=== PATIENT | male | born 1955 | race Two or more races ===

== ENCOUNTER → 2016-10-24 | Outpatient (CLI) | payer OTHER | END | disposition home or self-care (01) | LOC: WOUND 15:16 | PROVIDERS: ATTEND Podiatrist Foot & Ankle Surgery | DX: I87.2 Venous insufficiency (chronic) (peripheral) (principal); L97.822 Non-pressure chronic ulcer of other part of left lower leg with fat layer exposed; E78.5 Hyperlipidemia, unspecified; F17.210 Nicotine dependence, cigarettes, uncomplicated; Z72.89 Other problems related to lifestyle | CPT/HCPCS: 97597; G0463; WOU0463 ==

== ENCOUNTER → 2016-11-07 | Outpatient (CLI) | payer OTHER | END | disposition home or self-care (01) | LOC: WOUND 10:45 | PROVIDERS: ATTEND Podiatrist Foot & Ankle Surgery | DX: I87.2 Venous insufficiency (chronic) (peripheral) (principal); L97.822 Non-pressure chronic ulcer of other part of left lower leg with fat layer exposed; E78.5 Hyperlipidemia, unspecified; F17.210 Nicotine dependence, cigarettes, uncomplicated; Z72.89 Other problems related to lifestyle | CPT/HCPCS: 97597 ==

== ENCOUNTER → 2016-11-20 | Outpatient (CLI) | payer OTHER | END | disposition home or self-care (01) | LOC: CFH 09:42 | PROVIDERS: ATTEND Podiatrist Foot & Ankle Surgery | DX: S91.002D Unspecified open wound, left ankle, subsequent encounter (principal); L97.821 Non-pressure chronic ulcer of other part of left lower leg limited to breakdown of skin; E78.5 Hyperlipidemia, unspecified; M79.89 Other specified soft tissue disorders; I87.2 Venous insufficiency (chronic) (peripheral); Z87.891 Personal history of nicotine dependence; X58.XXXD Exposure to other specified factors, subsequent encounter | CPT/HCPCS: 93922; 93925; 93970 ==

== ENCOUNTER → 2016-11-21 | Outpatient (CLI) | payer OTHER | END | disposition home or self-care (01) | LOC: WOUND 10:10 | PROVIDERS: ATTEND Podiatrist Foot & Ankle Surgery | DX: I87.2 Venous insufficiency (chronic) (peripheral) (principal); L97.822 Non-pressure chronic ulcer of other part of left lower leg with fat layer exposed; E78.5 Hyperlipidemia, unspecified; F17.210 Nicotine dependence, cigarettes, uncomplicated; Z72.89 Other problems related to lifestyle | CPT/HCPCS: 97597 ==

== ENCOUNTER → 2016-12-05 | Outpatient (CLI) | payer OTHER | END | disposition home or self-care (01) | LOC: WOUND 10:30 | PROVIDERS: ATTEND Podiatrist Foot & Ankle Surgery | DX: I87.2 Venous insufficiency (chronic) (peripheral) (principal); L97.822 Non-pressure chronic ulcer of other part of left lower leg with fat layer exposed; E78.5 Hyperlipidemia, unspecified; F17.210 Nicotine dependence, cigarettes, uncomplicated; Z72.89 Other problems related to lifestyle | CPT/HCPCS: G0463; WOU0463 ==

== ENCOUNTER → 2017-01-16 | Outpatient (CLI) | payer OTHER | END | disposition home or self-care (01) | LOC: WOUND 09:00 | PROVIDERS: ATTEND Podiatrist Foot & Ankle Surgery | DX: I87.2 Venous insufficiency (chronic) (peripheral) (principal); L97.822 Non-pressure chronic ulcer of other part of left lower leg with fat layer exposed; E78.5 Hyperlipidemia, unspecified; F17.210 Nicotine dependence, cigarettes, uncomplicated; Z72.89 Other problems related to lifestyle | CPT/HCPCS: 97597 ==

== ENCOUNTER → 2018-03-23 | Outpatient (CLI) | payer OTHER | END | disposition home or self-care (01) | LOC: CVU 10:55 | PROVIDERS: ATTEND Internal Medicine Cardiovascular Disease | DX: I65.23 Occlusion and stenosis of bilateral carotid arteries (principal); I35.0 Nonrheumatic aortic (valve) stenosis; E78.5 Hyperlipidemia, unspecified | CPT/HCPCS: 93880 ==

== ENCOUNTER → 2018-05-11 | Outpatient (CLI) | payer OTHER ==
[~2018-05-11] MED LIST: ASPI-496 PO; CHRO1TAB4 PO; FLUT9.9S NAS; MAGNESIUM ZINC PO; METF500T27 PO; MULT1TAB57 PO; OMEP40CA6 PO; OMNIPAQUE 350 MG/ML, 100ML BOTTLE ONE; SIMV40TA3 PO; TRIA1KT.2 TP; UBID100C41 PO
== END | disposition home or self-care (01) ==
LOC: RAD 09:19
PROVIDERS: ATTEND Thoracic Surgery (Cardiothoracic Vascular Surgery)
DX: Z01.810 Encounter for preprocedural cardiovascular examination (principal); I77.810 Thoracic aortic ectasia
CPT/HCPCS: 36415; 71275; 82565; Q9967

== ENCOUNTER 2018-05-14 11:30 | Inpatient (IN) | payer OTHER ==
[~2018-05-14] VITALS: Ht 175.3 cm; Wt 103.8 kg
[2018-05-14 10:47] LABS: MICROSCOPIC NOT IND
[2018-05-14 11:08] LABS: INTERNATIONAL NORMALIZED RATIO 1.14 (0.93-1.1)
[2018-05-14 11:15] LABS: ALBUMIN 3.9 g/dL (3.4-5.0); ANION GAP 6 mmol/L (5-15); CALCIUM 8.7 mg/dL (8.5-10.1); CHLORIDE 106 mmol/L (98-107); MEAN CORPUSCULAR HEMOGLOBIN 21.6 pg (27.5-34.5); MEAN CORPUSCULAR HGB CONC 31.1 g/dL (33.2-36.2); MEAN CORPUSCULAR VOLUME 69.5 fL (81-97); MEAN PLATELET VOLUME 9.1 fL (7.4-10.4); PLATELET COUNT 274 x10^3/uL (130-400); RED BLOOD COUNT 6.01 x10^6/uL (4.38-5.82); RED CELL DISTRIBUTION WIDTH 27.8 % (9.4-14.8)
[2018-05-14 11:17] LABS: BASOPHILS # (AUTO) 0.04 x10^3/uL (0-0.1); BASOPHILS % (AUTO) 1 % (0-1); EOSINOPHILS # (AUTO) 0.24 x10^3/uL (0-0.4); EOSINOPHILS % (AUTO) 4 % (1-7); LYMPHOCYTES # (AUTO) 1.66 x10^3/uL (1-3.4); LYMPHOCYTES % (AUTO) 30 % (22-44); MD MORPH REVIEW ONLY; MONOCYTES # (AUTO) 0.64 x10^3/uL (0.2-0.8); MONOCYTES % (AUTO) 12 % (2-9); NEUTROPHILS # (AUTO) 2.97 x10^3/uL (1.8-6.8); NEUTROPHILS % (AUTO) 54 % (42-75)
[2018-05-14 11:18] LABS: ANISOCYTOSIS 2+; MICROCYTOSIS 2+; OVALOCYTES 1+
[2018-05-14 11:19] LABS: <PLATELET ESTIMATE> ADEQUATE; <PLT MORPHOLOGY> NORMAL PLT MORPH; ALANINE AMINOTRANSFERASE 37 U/L (12-78); ALKALINE PHOSPHATASE 71 U/L (45-117); BILIRUBIN,TOTAL 0.5 mg/dL (0.2-1.0); TOTAL PROTEIN 7.7 g/dL (6.4-8.2)
[~2018-05-14 11:30] MED LIST changes: -OMNIPAQUE 350 MG/ML, 100ML BOTTLE ONE
[2018-05-14 16:14] LABS: HEMOGLOBIN A1C 5.8 % (4.2-6.3)
[2018-05-15] MEDS ORDERED: INSULIN LISPRO 100 UNITS/ML, PEN SQ-INSULIN SCH (05:00)
[2018-05-15] MEDS ORDERED: DO NOT GIVE MC SCH (05:00)
[2018-05-15] MEDS ORDERED: CHLORHEXIDINE 15 ML UDC MM SCH (05:00)
[2018-05-15 05:42] VITALS: BP 114/77
[2018-05-15 05:43] VITALS: BP 114/74
[2018-05-15] MEDS ORDERED: FENTANYL PF 250 MCG/5ML ONE ×4 (06:46)
[2018-05-15] MEDS ORDERED: MIDAZOLAM 10MG/2 ML ONE (06:46)
[2018-05-15] MEDS ORDERED: AMINOCAPROIC ACID 250 MG/ML, 20ML ONE ×2 (06:53)
[2018-05-15] MEDS ORDERED: CALCIUM CHLORIDE 10%, 10ML SYR ONE (06:53)
[2018-05-15] MEDS ORDERED: ROCURONIUM 10MG/ML,5ML ONE (06:53)
[2018-05-15] MEDS ORDERED: PROPOFOL 10 MG/ML, 20ML ONE (07:13)
[2018-05-15] MEDS ORDERED: MILRINONE 1 MG/ML, 20ML ONE (07:13)
[2018-05-15] MEDS ORDERED: ALBUMIN HUMAN 5% 500 ML IV PRN (07:30)
[2018-05-15] MEDS ORDERED: REGULAR INSULIN 62.5 UNITS in SODIUM CHLORIDE 0.9% 249.375 ML IV PRN ×2 (07:30→10:18)
[2018-05-15] MEDS ORDERED: POTASSIUM CHLORIDE 80 MEQ, SODIUM BICARBONATE 8.4% 10 MEQ, MAGNESIUM SULFATE 0.5 GM, LI... IV PRN (07:30)
[2018-05-15] MEDS ORDERED: DEXMEDETOMIDINE 200 MCG in SODIUM CHLORIDE 0.9% 48 ML IV SCH (07:30)
[2018-05-15] MEDS ORDERED: VANCOMYCIN 1,400 MG in SODIUM CHLORIDE 0.9% 250 ML IV PRN (07:30)
[2018-05-15] MEDS ORDERED: EPINEPHRINE 2 MG in SODIUM CHLORIDE 0.9% 248 ML IV SCH (07:30)
[2018-05-15] MEDS ORDERED: MANNITOL PMX 20% 500 ML IVPB PRN (07:30)
[2018-05-15] MEDS ORDERED: PHENYLEPHRINE 10 MG in SODIUM CHLORIDE 0.9% 249 ML IV PRN ×2 (07:30→10:18)
[2018-05-15] MEDS ORDERED: MUPIROCIN OINT 2%, 22GM TP SCH (09:00)
[2018-05-15] MEDS: DOCUSATE 100 MG CAPSULE PO SCH ×2 (09:00→22:31)
[2018-05-15] MEDS ORDERED: SODIUM CHLORIDE FLUSH 10ML SYR IVF SCH (09:00)
[2018-05-15] MEDS ORDERED: NITROGLYCERIN/D5W PMX 250 ML IV PRN (10:18)
[2018-05-15] MEDS ORDERED: DOBUTAMINE 250 MG in SODIUM CHLORIDE 0.9% 230 ML IV PRN (10:18)
[2018-05-15] MEDS ORDERED: VASOPRESSIN 50 UNIT in SODIUM CHLORIDE 0.9% 247.5 ML IV PRN (10:18)
[2018-05-15] MEDS ORDERED: SODIUM BICARB 8.4%, 50ML SYRINGE IV PRN (10:30)
[2018-05-15] MEDS ORDERED: BISACODYL 10 MG SUPP PR PRN (10:30)
[2018-05-15] MEDS ORDERED: LACTATED RINGERS 500 ML IV PRN (10:30)
[2018-05-15] MEDS ORDERED: INSULIN REGULAR 100 UNITS/ML, 3ML VIAL IVPush PRN (10:30)
[2018-05-15] MEDS ORDERED: EPINEPHRINE 2 MG in SODIUM CHLORIDE 0.9% 248 ML IV PRN (10:30)
[2018-05-15] MEDS ORDERED: FENTANYL PF 100 MCG/2ML IVPush PRN (10:30)
[2018-05-15] MEDS ORDERED: BISACODYL 5 MG EC TABLET PO PRN (10:30)
[2018-05-15] MEDS ORDERED: HYDROcodone/APAP 5/325 TABLET PO PRN (10:30)
[2018-05-15] MEDS ORDERED: ONDANSETRON 2MG/ML, 2ML IVPush PRN (10:30)
[2018-05-15] MEDS ORDERED: DEXTROSE 4 GM TAB.CHEW PO PRN (10:30)
[2018-05-15] MEDS ORDERED: GLUCAGON 1 MG IM PRN (10:30)
[2018-05-15] MEDS: KSCALE TO 4.5 IV SCH ×3 (10:30→22:30)
[2018-05-15] MEDS ORDERED: ACETAMINOPHEN 650 MG SUPP PR PRN (10:30)
[2018-05-15] MEDS ORDERED: DEXTROSE 50%, 50ML SYRINGE IVPush PRN (10:30)
[2018-05-15] MEDS ORDERED: PROCHLORPERAZINE 5 MG/ML, 2ML IVPush PRN (10:30)
[2018-05-15] MEDS ORDERED: LIDOCAINE 2% 100MG/5ML SYRINGE ONE (10:40)
[2018-05-15] MEDS ORDERED: SODIUM BICARB 8.4%, 50ML SYRINGE ONE (10:40)
[2018-05-15] MEDS ORDERED: SODIUM BICARBONATE 1 MEQ/ML, 50ML VIAL ONE (10:40)
[2018-05-15] MEDS ORDERED: HEPARIN 1,000 UNITS/ML, 30ML ONE ×2 (10:41→10:42)
[2018-05-15] MEDS ORDERED: ALBUMIN HUMAN 25% 50 ML ONE (10:41)
[2018-05-15] MEDS ORDERED: PHENYLEPHRINE 10 MG/ML ONE (10:41)
[2018-05-15 10:58] LABS: GLUCOSE BY BLOOD GAS ANALYZER 172 mg/dL (70-110); HEMOGLOBIN BY BLOOD GAS ANALYZ 11.2 g/dL (14.0-18.0); POTASSIUM BY BLOOD GAS ANALYZR 3.9 mmol/L (3.6-5.5)
[2018-05-15] MEDS: INSULIN LISPRO 100 UNITS/ML, PEN SQ-INSULIN SCH ×3 (11:00→21:00)
[2018-05-15] MEDS ORDERED: SODIUM CHLORIDE 0.9% 1,000 ML IV PRN (11:00)
[2018-05-15] MEDS: MAGNESIUM SULFATE 1 GM in SODIUM CHLORIDE 0.9% 50 ML IVPB SCH (11:05)
[2018-05-15 11:10] LABS: INTERNATIONAL NORMALIZED RATIO 1.43 (0.93-1.1)
[2018-05-15] MEDS: MORPHINE SULFATE 4 MG/ML, 1ML IVPush PRN ×2 (11:22→11:53)
[2018-05-15] MEDS ORDERED: POTASSIUM CHLORIDE PMX 100 ML IV ONE ×2 (11:30→23:30)
[2018-05-15] MEDS ORDERED: DEXMEDETOMIDINE 200 MCG in SODIUM CHLORIDE 0.9% 48 ML IV PRN (12:00)
[2018-05-15 13:05] VITALS: BP 89/52
[2018-05-15 13:18] VITALS: BP 89/52
[2018-05-15 13:27] VITALS: BP 93/54
[2018-05-15] MEDS ORDERED: SODIUM BICARB 8.4%, 50ML SYRINGE IVPush ONE (13:30)
[2018-05-15] MEDS: OXYcodone IR 5MG TABLET PO PRN (16:39)
[2018-05-15] MEDS: HYDROcodone/APAP 10/325 MG TABLET PO PRN ×2 (17:45→22:31)
[2018-05-15] MEDS: VANCOMYCIN 1,500 MG in SODIUM CHLORIDE 0.9% 250 ML IVPB SCH (21:49)
[2018-05-15] MEDS: MUPIROCIN OINT 2%, 22GM NAS SCH (22:31)
[2018-05-15] MEDS: ACETAMINOPHEN 325 MG TABLET PO PRN (22:31)
[2018-05-15] MEDS: SODIUM CHLORIDE FLUSH 10ML SYR IVF SCH (22:31)
[2018-05-16] MEDS: ACETAMINOPHEN 325 MG TABLET PO PRN (02:35)
[2018-05-16] MEDS: HYDROcodone/APAP 10/325 MG TABLET PO PRN ×2 (02:35→07:47)
[2018-05-16] MEDS: KSCALE TO 4.5 IV SCH (04:30)
[2018-05-16 05:09] LABS: INTERNATIONAL NORMALIZED RATIO 1.24 (0.93-1.1)
[2018-05-16 05:12] LABS: ALBUMIN 3.4 g/dL (3.4-5.0); ANION GAP 8 mmol/L (5-15); CALCIUM 7.5 mg/dL (8.5-10.1); CHLORIDE 105 mmol/L (98-107)
[2018-05-16 05:14] LABS: CREATININE 0.83 mg/dL (0.7-1.3)
[2018-05-16 05:19] LABS: MEAN CORPUSCULAR HEMOGLOBIN 22.1 pg (27.5-34.5); MEAN CORPUSCULAR HGB CONC 31.8 g/dL (33.2-36.2); MEAN CORPUSCULAR VOLUME 69.5 fL (81-97); MEAN PLATELET VOLUME 9.1 fL (7.4-10.4); PLATELET COUNT 178 x10^3/uL (130-400); RED BLOOD COUNT 4.58 x10^6/uL (4.38-5.82); RED CELL DISTRIBUTION WIDTH 27.3 % (9.4-14.8)
[2018-05-16 05:46] LABS: ANISOCYTOSIS 2+; BASOPHILS # (AUTO) 0.02 x10^3/uL (0-0.1); BASOPHILS % (AUTO) 0 % (0-1); EOSINOPHILS % (AUTO) 0 % (1-7); LYMPHOCYTES # (AUTO) 1.12 x10^3/uL (1-3.4); LYMPHOCYTES % (AUTO) 9 % (22-44); MD MORPH REVIEW ONLY; MICROCYTOSIS 2+; MONOCYTES # (AUTO) 1.34 x10^3/uL (0.2-0.8); MONOCYTES % (AUTO) 10 % (2-9); NEUTROPHILS # (AUTO) 10.53 x10^3/uL (1.8-6.8); NEUTROPHILS % (AUTO) 81 % (42-75); OVALOCYTES 1+
[2018-05-16 05:47] LABS: <PLATELET ESTIMATE> ADEQUATE; <PLT MORPHOLOGY> NORMAL PLT MORPH; POLYCHROMASIA 1+
[2018-05-16] MEDS: INSULIN LISPRO 100 UNITS/ML, PEN SQ-INSULIN SCH ×4 (06:01→20:30)
[2018-05-16] MEDS ORDERED: POTASSIUM CHLORIDE PMX 100 ML IV ONE (06:30)
[2018-05-16] MEDS: VANCOMYCIN 1,500 MG in SODIUM CHLORIDE 0.9% 250 ML IVPB SCH (07:46)
[2018-05-16] MEDS: SODIUM CHLORIDE FLUSH 10ML SYR IVF SCH ×2 (08:04→21:05)
[2018-05-16] MEDS ORDERED: FUROSEMIDE 40 MG/4 ML IV ONE (08:30)
[2018-05-16] MEDS: DOCUSATE 100 MG CAPSULE PO SCH ×2 (09:36→21:04)
[2018-05-16] MEDS: OXYcodone IR 5MG TABLET PO PRN ×4 (09:36→20:08)
[2018-05-16] MEDS: ASPIRIN 81 MG TABLET EC PO SCH (09:36)
[2018-05-16] MEDS: MUPIROCIN OINT 2%, 22GM NAS SCH ×2 (09:37→21:05)
[2018-05-16] MEDS ORDERED: REGULAR INSULIN 62.5 UNITS in SODIUM CHLORIDE 0.9% 249.375 ML IV PRN (10:18)
[2018-05-16] MEDS: WARFARIN BIOPROSTHETIC VALVE PROTOCOL 2-3 XX SCH (10:46)
[2018-05-16] MEDS: MAGNESIUM SULFATE 1 GM in SODIUM CHLORIDE 0.9% 50 ML IVPB SCH (12:20)
[2018-05-16] MEDS: WARFARIN MODERAT DOSE PROTOCOL XX SCH (12:28)
[2018-05-16] MEDS ORDERED: LISINOPRIL 5 MG TABLET ONE (13:32)
[2018-05-16] MEDS: LISINOPRIL 5 MG TABLET PO SCH ×2 (13:34→21:04)
[2018-05-16] MEDS ORDERED: WARFARIN 7.5 MG TABLET PO-COUM SCH (18:00)
[2018-05-16] MEDS: CHLORHEXIDINE 15 ML UDC MM SCH (21:04)
[2018-05-16] MEDS ORDERED: ALBUMIN HUMAN 5% 500 ML IV ONE (22:30)
[2018-05-17] MEDS: OXYcodone IR 5MG TABLET PO PRN ×5 (00:05→16:16)
[2018-05-17] MEDS: INSULIN LISPRO 100 UNITS/ML, PEN SQ-INSULIN SCH ×6 (00:15→19:59)
[2018-05-17 04:50] LABS: MEAN CORPUSCULAR HGB CONC 31.5 g/dL (33.2-36.2); MEAN CORPUSCULAR VOLUME 69.9 fL (81-97); PLATELET COUNT 144 x10^3/uL (130-400); RED BLOOD COUNT 4.07 x10^6/uL (4.38-5.82); RED CELL DISTRIBUTION WIDTH 27.6 % (9.4-14.8)
[2018-05-17 04:56] LABS: INTERNATIONAL NORMALIZED RATIO 1.28 (0.93-1.1); PROTHROMBIN TIME 13.4 Seconds (9.6-11.5)
[2018-05-17 04:57] LABS: ANION GAP 8 mmol/L (5-15); CALCIUM 8.2 mg/dL (8.5-10.1); CHLORIDE 99 mmol/L (98-107); CREATININE 1.12 mg/dL (0.7-1.3)
[2018-05-17 05:40] LABS: BASOPHILS # (AUTO) 0.03 x10^3/uL (0-0.1); BASOPHILS % (AUTO) 0 % (0-1); EOSINOPHILS # (AUTO) 0.01 x10^3/uL (0-0.4); EOSINOPHILS % (AUTO) 0 % (1-7); LYMPHOCYTES # (AUTO) 1.26 x10^3/uL (1-3.4); LYMPHOCYTES % (AUTO) 9 % (22-44); MD SCAN; MONOCYTES # (AUTO) 1.15 x10^3/uL (0.2-0.8); MONOCYTES % (AUTO) 9 % (2-9); NEUTROPHILS # (AUTO) 11.01 x10^3/uL (1.8-6.8); NEUTROPHILS % (AUTO) 82 % (42-75)
[2018-05-17] MEDS: WARFARIN BIOPROSTHETIC VALVE PROTOCOL 2-3 XX SCH (07:59)
[2018-05-17] MEDS ORDERED: FUROSEMIDE 20 MG/2 ML ONE (08:59)
[2018-05-17] MEDS: ASPIRIN 81 MG TABLET EC PO SCH (09:00)
[2018-05-17] MEDS: LISINOPRIL 5 MG TABLET PO SCH ×2 (09:00→19:56)
[2018-05-17] MEDS: CHLORHEXIDINE 15 ML UDC MM SCH ×2 (09:00→19:56)
[2018-05-17] MEDS ORDERED: FUROSEMIDE 20 MG/2 ML IV ONE (09:00)
[2018-05-17] MEDS: DOCUSATE 100 MG CAPSULE PO SCH ×2 (09:01→19:56)
[2018-05-17] MEDS: MUPIROCIN OINT 2%, 22GM NAS SCH ×2 (09:01→21:47)
[2018-05-17] MEDS: SODIUM CHLORIDE FLUSH 10ML SYR IVF SCH ×3 (09:03→21:47)
[2018-05-17] MEDS ORDERED: LACTATED RINGERS 500 ML IVBOLUS ONE (10:30)
[2018-05-17] MEDS ORDERED: MAGNESIUM HYDROXIDE 8%, 30ML UDC PO PRN (11:00)
[2018-05-17] MEDS: MAGNESIUM SULFATE 1 GM in SODIUM CHLORIDE 0.9% 50 ML IVPB SCH (11:40)
[2018-05-17] MEDS: WARFARIN MODERAT DOSE PROTOCOL XX SCH (11:43)
[2018-05-17] MEDS: HYDROcodone/APAP 10/325 MG TABLET PO PRN ×2 (14:16→17:53)
[2018-05-17 16:11] VITALS: BP 126/79
[2018-05-17] MEDS: metFORMIN 500 MG TABLET PO SCH (16:16)
[2018-05-17] MEDS ORDERED: WARFARIN 7.5 MG TABLET PO-COUM SCH (18:00)
[2018-05-17 19:15] VITALS: BP 120/74
[2018-05-17 19:53] VITALS: BP 106/68
[2018-05-17] MEDS: SIMVASTATIN 40 MG TABLET PO SCH (19:57)
[2018-05-18 01:44] VITALS: BP 119/71
[2018-05-18 05:38] LABS: MEAN CORPUSCULAR HGB CONC 31.4 g/dL (33.2-36.2); MEAN CORPUSCULAR VOLUME 69.9 fL (81-97); MEAN PLATELET VOLUME 9.1 fL (7.4-10.4); PLATELET COUNT 139 x10^3/uL (130-400); RED BLOOD COUNT 3.85 x10^6/uL (4.38-5.82); RED CELL DISTRIBUTION WIDTH 27.1 % (9.4-14.8)
[2018-05-18 05:44] LABS: ANION GAP 6 mmol/L (5-15); CALCIUM 7.8 mg/dL (8.5-10.1); CHLORIDE 95 mmol/L (98-107); CREATININE 0.97 mg/dL (0.7-1.3)
[2018-05-18 06:03] LABS: BASOPHILS # (AUTO) 0.03 x10^3/uL (0-0.1); BASOPHILS % (AUTO) 0 % (0-1); EOSINOPHILS # (AUTO) 0.15 x10^3/uL (0-0.4); EOSINOPHILS % (AUTO) 2 % (1-7); LYMPHOCYTES # (AUTO) 0.95 x10^3/uL (1-3.4); LYMPHOCYTES % (AUTO) 10 % (22-44); MD SCAN; MONOCYTES % (AUTO) 7 % (2-9); NEUTROPHILS # (AUTO) 7.91 x10^3/uL (1.8-6.8); NEUTROPHILS % (AUTO) 81 % (42-75)
[2018-05-18 07:45] VITALS: BP 138/84
[2018-05-18] MEDS: INSULIN LISPRO 100 UNITS/ML, PEN SQ-INSULIN SCH ×4 (08:00→19:34)
[2018-05-18] MEDS: ASPIRIN 81 MG TABLET EC PO SCH (08:01)
[2018-05-18] MEDS: CHLORHEXIDINE 15 ML UDC MM SCH (08:01)
[2018-05-18] MEDS: HYDROcodone/APAP 10/325 MG TABLET PO PRN ×2 (08:01→16:49)
[2018-05-18] MEDS: DOCUSATE 100 MG CAPSULE PO SCH ×2 (08:01→19:34)
[2018-05-18] MEDS: LISINOPRIL 5 MG TABLET PO SCH ×2 (08:01→19:39)
[2018-05-18] MEDS: metFORMIN 500 MG TABLET PO SCH ×2 (08:01→16:49)
[2018-05-18] MEDS: MUPIROCIN OINT 2%, 22GM NAS SCH ×2 (08:01→19:33)
[2018-05-18] MEDS: KETOROLAC 30 MG/1 ML IM SCH ×3 (09:00→19:32)
[2018-05-18] MEDS: FUROSEMIDE 40 MG/4 ML IV SCH (10:24)
[2018-05-18] MEDS: GUAIFENESIN ER 600 MG TABLET PO SCH ×2 (10:25→19:33)
[2018-05-18] MEDS: SODIUM CHLORIDE FLUSH 10ML SYR IVF SCH ×4 (10:25→19:33)
[2018-05-18] MEDS: WARFARIN BIOPROSTHETIC VALVE PROTOCOL 2-3 XX SCH (10:25)
[2018-05-18] MEDS: POTASSIUM CHLORIDE 20 MEQ TAB.ER.PRT PO SCH (10:25)
[2018-05-18] MEDS: OXYcodone IR 5MG TABLET PO PRN ×2 (11:07→21:32)
[2018-05-18 11:10] LABS: INTERNATIONAL NORMALIZED RATIO 1.17 (0.93-1.1); PROTHROMBIN TIME 12.3 Seconds (9.6-11.5)
[2018-05-18] MEDS: WARFARIN MODERAT DOSE PROTOCOL XX SCH (12:00)
[2018-05-18 13:22] VITALS: BP 112/67
[2018-05-18] MEDS ORDERED: WARFARIN 10 MG TABLET PO-COUM ONE (18:00)
[2018-05-18 18:45] VITALS: BP 138/76
[2018-05-18] MEDS: SIMVASTATIN 40 MG TABLET PO SCH (19:34)
[2018-05-18 19:39] VITALS: BP 122/77
[2018-05-19 00:54] VITALS: BP 112/71
[2018-05-19] MEDS: HYDROcodone/APAP 10/325 MG TABLET PO PRN (01:02)
[2018-05-19] MEDS: KETOROLAC 30 MG/1 ML IM SCH ×5 (03:00→23:09)
[2018-05-19 05:43] LABS: MEAN CORPUSCULAR HEMOGLOBIN 22.8 pg (27.5-34.5); MEAN CORPUSCULAR HGB CONC 32.5 g/dL (33.2-36.2); MEAN CORPUSCULAR VOLUME 70.1 fL (81-97); MEAN PLATELET VOLUME 9.7 fL (7.4-10.4); PLATELET COUNT 194 x10^3/uL (130-400); RED BLOOD COUNT 4.01 x10^6/uL (4.38-5.82); RED CELL DISTRIBUTION WIDTH 27.2 % (9.4-14.8)
[2018-05-19 05:48] LABS: ANION GAP 6 mmol/L (5-15); CHLORIDE 97 mmol/L (98-107); CREATININE 0.78 mg/dL (0.7-1.3)
[2018-05-19 06:17] LABS: MD MORPH REVIEW ONLY
[2018-05-19 06:18] LABS: BASOPHILS # (AUTO) 0.04 x10^3/uL (0-0.1); BASOPHILS % (AUTO) 1 % (0-1); EOSINOPHILS # (AUTO) 0.28 x10^3/uL (0-0.4); EOSINOPHILS % (AUTO) 4 % (1-7); LYMPHOCYTES # (AUTO) 0.81 x10^3/uL (1-3.4); LYMPHOCYTES % (AUTO) 12 % (22-44); MONOCYTES # (AUTO) 0.78 x10^3/uL (0.2-0.8); MONOCYTES % (AUTO) 11 % (2-9); NEUTROPHILS # (AUTO) 5.15 x10^3/uL (1.8-6.8); NEUTROPHILS % (AUTO) 73 % (42-75)
[2018-05-19 06:19] LABS: ANISOCYTOSIS 2+; HYPOCHROMIA 1+; MICROCYTOSIS 2+
[2018-05-19 06:20] LABS: <PLATELET ESTIMATE> ADEQUATE; <PLT MORPHOLOGY> NORMAL PLT MORPH; OVALOCYTES 1+; POLYCHROMASIA 1+
[2018-05-19 07:27] VITALS: BP 117/76
[2018-05-19 08:02] LABS: INTERNATIONAL NORMALIZED RATIO 2.97 (0.93-1.1); PROTHROMBIN TIME 30.2 Seconds (9.6-11.5)
[2018-05-19] MEDS: GUAIFENESIN ER 600 MG TABLET PO SCH ×2 (08:37→20:29)
[2018-05-19] MEDS: metFORMIN 500 MG TABLET PO SCH ×2 (08:37→16:27)
[2018-05-19] MEDS: POTASSIUM CHLORIDE 20 MEQ TAB.ER.PRT PO SCH (08:37)
[2018-05-19] MEDS: FUROSEMIDE 40 MG/4 ML IV SCH (08:37)
[2018-05-19] MEDS: INSULIN LISPRO 100 UNITS/ML, PEN SQ-INSULIN SCH ×4 (08:37→20:29)
[2018-05-19] MEDS: LISINOPRIL 5 MG TABLET PO SCH ×2 (08:38→20:30)
[2018-05-19] MEDS: ASPIRIN 81 MG TABLET EC PO SCH (08:38)
[2018-05-19] MEDS: SODIUM CHLORIDE FLUSH 10ML SYR IVF SCH ×4 (08:38→21:00)
[2018-05-19] MEDS: DOCUSATE 100 MG CAPSULE PO SCH ×2 (08:38→20:29)
[2018-05-19] MEDS: MUPIROCIN OINT 2%, 22GM NAS SCH ×2 (08:41→20:29)
[2018-05-19] MEDS ORDERED: TEMPLATE NON-FORMULARY MED. (Metformin Hcl** (Metformin Hcl Er**) 500 MG) PO SCH (09:30)
[2018-05-19] MEDS: WARFARIN BIOPROSTHETIC VALVE PROTOCOL 2-3 XX SCH (09:54)
[2018-05-19] MEDS: OMEPRAZOLE 20 MG CAPSULE.DR PO SCH (11:41)
[2018-05-19 12:07] VITALS: BP 129/81
[2018-05-19] MEDS: WARFARIN MODERAT DOSE PROTOCOL XX SCH (13:22)
[2018-05-19] MEDS: METOPROLOL TARTRATE 25 MG TABLET PO SCH (16:27)
[2018-05-19 19:19] VITALS: BP 133/77
[2018-05-19] MEDS: SIMVASTATIN 40 MG TABLET PO SCH (20:30)
[2018-05-19] MEDS: ACETAMINOPHEN 325 MG TABLET PO PRN (20:30)
[2018-05-20 02:18] VITALS: BP 130/79
[2018-05-20 05:17] VITALS: BP 138/85
[2018-05-20] MEDS: METOPROLOL TARTRATE 25 MG TABLET PO SCH (05:18)
[2018-05-20 06:12] LABS: BASOPHILS # (AUTO) 0.03 x10^3/uL (0-0.1); BASOPHILS % (AUTO) 1 % (0-1); EOSINOPHILS # (AUTO) 0.22 x10^3/uL (0-0.4); EOSINOPHILS % (AUTO) 4 % (1-7); LYMPHOCYTES # (AUTO) 0.59 x10^3/uL (1-3.4); LYMPHOCYTES % (AUTO) 10 % (22-44); MD SCAN; MEAN CORPUSCULAR HEMOGLOBIN 22.7 pg (27.5-34.5); MEAN CORPUSCULAR HGB CONC 32.5 g/dL (33.2-36.2); MEAN CORPUSCULAR VOLUME 69.9 fL (81-97); MEAN PLATELET VOLUME 9.3 fL (7.4-10.4); MONOCYTES # (AUTO) 0.77 x10^3/uL (0.2-0.8); MONOCYTES % (AUTO) 13 % (2-9); NEUTROPHILS # (AUTO) 4.21 x10^3/uL (1.8-6.8); NEUTROPHILS % (AUTO) 72 % (42-75); PLATELET COUNT 257 x10^3/uL (130-400); RED BLOOD COUNT 4.03 x10^6/uL (4.38-5.82); RED CELL DISTRIBUTION WIDTH 27.6 % (9.4-14.8)
[2018-05-20 06:23] LABS: ANION GAP 6 mmol/L (5-15); CALCIUM 8.1 mg/dL (8.5-10.1); CHLORIDE 101 mmol/L (98-107)
[2018-05-20 06:26] LABS: CREATININE 0.72 mg/dL (0.7-1.3)
[2018-05-20] MEDS: INSULIN LISPRO 100 UNITS/ML, PEN SQ-INSULIN SCH ×2 (07:00→11:00)
[2018-05-20 07:34] VITALS: BP 138/80
[2018-05-20 07:59] LABS: INTERNATIONAL NORMALIZED RATIO 2.96 (0.93-1.1); PROTHROMBIN TIME 30.1 Seconds (9.6-11.5)
[2018-05-20] MEDS: SODIUM CHLORIDE FLUSH 10ML SYR IVF SCH ×2 (08:20)
[2018-05-20] MEDS: FUROSEMIDE 40 MG/4 ML IV SCH (08:20)
[2018-05-20] MEDS: GUAIFENESIN ER 600 MG TABLET PO SCH (08:30)
[2018-05-20] MEDS: LISINOPRIL 5 MG TABLET PO SCH (08:30)
[2018-05-20] MEDS: OMEPRAZOLE 20 MG CAPSULE.DR PO SCH (08:30)
[2018-05-20] MEDS: ACETAMINOPHEN 325 MG TABLET PO PRN (08:30)
[2018-05-20] MEDS: metFORMIN 500 MG TABLET PO SCH (08:31)
[2018-05-20] MEDS: ASPIRIN 81 MG TABLET EC PO SCH (08:31)
[2018-05-20] MEDS: POTASSIUM CHLORIDE 20 MEQ TAB.ER.PRT PO SCH (08:31)
[2018-05-20] MEDS: DOCUSATE 100 MG CAPSULE PO SCH (08:31)
[2018-05-20] MEDS: MUPIROCIN OINT 2%, 22GM NAS SCH (08:31)
[2018-05-20] MEDS ORDERED: HYDR-3307 PO (08:32)
[2018-05-20] MEDS ORDERED: METO25TA35 PO (08:32)
[2018-05-20] MEDS: KETOROLAC 30 MG/1 ML IM SCH (08:33)
[2018-05-20] MEDS ORDERED: WARF2.5T32 PO (12:04)
== END 2018-05-20 13:10 | disposition home or self-care (01) | DRG 219 ==
LOC: 5SO 05-15 04:22 → CSU 05-15 07:50 → 5SO 05-17 13:26 → DCLOUNGE 05-20 12:44
PROVIDERS: ADMIT Thoracic Surgery (Cardiothoracic Vascular Surgery); ATTEND Thoracic Surgery (Cardiothoracic Vascular Surgery)
PROC: 5A1221Z Performance of Cardiac Output, Continuous (ICD-10-PCS; 2018-05-15)
PROC: B246ZZ4 Ultrasonography of Right and Left Heart, Transesophageal (ICD-10-PCS; 2018-05-15)
PROC: 30233R1 Transfusion of Nonautologous Platelets into Peripheral Vein, Percutaneous Approach (ICD-10-PCS; 2018-05-15)
PROC: 02RF08Z Replacement of Aortic Valve with Zooplastic Tissue, Open Approach (ICD-10-PCS; principal; 2018-05-15 07:30)
DX: I35.0 Nonrheumatic aortic (valve) stenosis (principal); Z00.6 Encounter for examination for normal comparison and control in clinical research program; I50.33 Acute on chronic diastolic (congestive) heart failure; J81.1 Chronic pulmonary edema; E87.4 Mixed disorder of acid-base balance; R06.89 Other abnormalities of breathing; I71.4 Abdominal aortic aneurysm, without rupture; I25.10 Atherosclerotic heart disease of native coronary artery without angina pectoris; E78.5 Hyperlipidemia, unspecified; E11.9 Type 2 diabetes mellitus without complications; E87.6 Hypokalemia; I34.0 Nonrheumatic mitral (valve) insufficiency; I71.2 Thoracic aortic aneurysm, without rupture; K21.9 Gastro-esophageal reflux disease without esophagitis; Z86.79 Personal history of other diseases of the circulatory system; Z88.8 Allergy status to other drugs, medicaments and biological substances; Z87.891 Personal history of nicotine dependence; Z79.82 Long term (current) use of aspirin; Z79.899 Other long term (current) drug therapy
CPT/HCPCS: 36415; 36600; 71045; 71046; 80048; 80053; 81003; 82040; 82330; 82800; 82803; 82810; 82947; 82962; 83036; 83735; 84132; 84295; 85014; 85018; 85025; 85049; 85347; 85610; 85730; 86850; 86900; 86923; 87070; 87081; 87205; 88304; 88305; 88311; 93005; 93312; 93321; 93325; 94002; 94150; C1768; G0378; J1644; J1815; J1940; J2250; J2260; J2704; J3010; J3370; J3475; J3480; J3490; J7120; P9045; P9047; C1751; C1760; J0171; J2370; J7050; P9035

== ENCOUNTER 2018-06-05 16:50 | Inpatient (IN) | payer OTHER ==
[~2018-06-05] VITALS: Ht 175.3 cm; Wt 89.6 kg
[~2018-06-05 16:50] MED LIST changes: +HYDR-3307 PO; +METO25TA35 PO; +WARF2.5T32 PO
--- NOTE | 2018-06-05 17:18 | NUR ---
Assumed care of patient from MARIS Youngblood. Pt resting in bed with family at bedside. POC discussed. No signs of distress noted. Will continue to monitor.
[2018-06-05] MEDS ORDERED: SODIUM CHLORIDE FLUSH 10ML SYR IVF ONE (17:30)
[2018-06-05 17:56] LABS: MEAN CORPUSCULAR HEMOGLOBIN 22.6 pg (27.5-34.5); MEAN CORPUSCULAR HGB CONC 31.5 g/dL (33.2-36.2); MEAN CORPUSCULAR VOLUME 71.8 fL (81-97); MEAN PLATELET VOLUME 8.1 fL (7.4-10.4); PLATELET COUNT 543 x10^3/uL (130-400); RED BLOOD COUNT 5.04 x10^6/uL (4.38-5.82); RED CELL DISTRIBUTION WIDTH 24.1 % (9.4-14.8)
--- NOTE | 2018-06-05 17:56 | NUR ---
pt resting in bed with family at bedside. pt questioning if he will get his coumadin as scheduled. Unknown dose at this time. Call to pharmacy to verify dosage.
[2018-06-05 18:06] LABS: INTERNATIONAL NORMALIZED RATIO 1.42 (0.93-1.1); PROTHROMBIN TIME 14.9 Seconds (9.6-11.5)
[2018-06-05 18:07] LABS: ALBUMIN 3.4 g/dL (3.4-5.0); ANION GAP 7 mmol/L (5-15); CALCIUM 8.7 mg/dL (8.5-10.1); CHLORIDE 105 mmol/L (98-107); CREATININE 0.91 mg/dL (0.7-1.3)
--- NOTE | 2018-06-05 18:08 | NUR ---
pharmacy verified coumadin dosage as 2.5mg q day. MD to order dose for patient at this time. Pt ambulated to restroom without complications. Will continue to monitor.
[2018-06-05 18:11] LABS: TROPONIN I < 0.015 ng/mL (0.000-0.045)
[2018-06-05] MEDS ORDERED: WARFARIN 2.5 MG TABLET PO-COUM ONE (18:30)
--- NOTE | 2018-06-05 18:54 | NUR ---
pt resting in bed awaiting room assignment at this time
[2018-06-05 18:55] LABS: BASOPHILS # (AUTO) 0.03 x10^3/uL (0-0.1); BASOPHILS % (AUTO) 0 % (0-1); EOSINOPHILS # (AUTO) 0.18 x10^3/uL (0-0.4); EOSINOPHILS % (AUTO) 3 % (1-7); LYMPHOCYTES # (AUTO) 1.54 x10^3/uL (1-3.4); LYMPHOCYTES % (AUTO) 23 % (22-44); MD SCAN; MONOCYTES # (AUTO) 0.65 x10^3/uL (0.2-0.8); MONOCYTES % (AUTO) 10 % (2-9); NEUTROPHILS # (AUTO) 4.37 x10^3/uL (1.8-6.8); NEUTROPHILS % (AUTO) 65 % (42-75)
--- NOTE | 2018-06-05 19:13 | NUR ---
admitting provider at bedside at this time
[2018-06-05] MEDS ORDERED: LABETALOL 5MG/ML, 20ML IVPush PRN (20:00)
[2018-06-05] MEDS ORDERED: ACETAMINOPHEN 325 MG TABLET PO PRN (20:00)
[2018-06-05] MEDS ORDERED: LIDODERM 5% PATCH TD PRN (20:00)
[2018-06-05] MEDS ORDERED: DOCUSATE 100 MG CAPSULE PO PRN (20:00)
[2018-06-05 20:52] LABS: FREE T4 (FREE THYROXINE) 0.88 ng/dL (0.76-1.46)
[2018-06-05 20:53] VITALS: BP 118/77
[2018-06-05] MEDS ORDERED: [UNRECOGNIZED DRUG - OTHER] TP SCH (21:00)
[2018-06-05] MEDS ORDERED: SIMVASTATIN 40 MG TABLET PO SCH (21:00)
[2018-06-05] MEDS: METOPROLOL TARTRATE 25 MG TABLET PO SCH (23:28)
[2018-06-05] MEDS: INSULIN LISPRO 100 UNITS/ML, PEN SQ-INSULIN SCH (23:29)
[2018-06-05 23:50] LABS: TROPONIN I 0.016 ng/mL (0.000-0.045)
[2018-06-06 00:45] VITALS: BP 134/79
[2018-06-06 06:39] VITALS: BP 101/66
[2018-06-06] MEDS: METOPROLOL TARTRATE 25 MG TABLET PO SCH (06:41)
[2018-06-06] MEDS: INSULIN LISPRO 100 UNITS/ML, PEN SQ-INSULIN SCH (07:00)
[2018-06-06 07:19] LABS: INTERNATIONAL NORMALIZED RATIO 1.48 (0.93-1.1); PROTHROMBIN TIME 15.5 Seconds (9.6-11.5)
[2018-06-06 07:23] LABS: ANION GAP 8 mmol/L (5-15); CALCIUM 8.6 mg/dL (8.5-10.1); CHLORIDE 105 mmol/L (98-107); CREATININE 0.82 mg/dL (0.7-1.3)
[2018-06-06 07:24] LABS: MEAN CORPUSCULAR HEMOGLOBIN 22.2 pg (27.5-34.5); MEAN CORPUSCULAR HGB CONC 31.3 g/dL (33.2-36.2); MEAN PLATELET VOLUME 7.9 fL (7.4-10.4); PLATELET COUNT 521 x10^3/uL (130-400); RED BLOOD COUNT 4.71 x10^6/uL (4.38-5.82)
[2018-06-06 07:26] LABS: TROPONIN I < 0.015 ng/mL (0.000-0.045)
[2018-06-06 07:34] VITALS: BP 103/66
[2018-06-06 08:03] LABS: BASOPHILS # (AUTO) 0.04 x10^3/uL (0-0.1); BASOPHILS % (AUTO) 1 % (0-1); EOSINOPHILS % (AUTO) 5 % (1-7); LYMPHOCYTES # (AUTO) 1.62 x10^3/uL (1-3.4); LYMPHOCYTES % (AUTO) 25 % (22-44); MD SCAN; MONOCYTES # (AUTO) 0.67 x10^3/uL (0.2-0.8); MONOCYTES % (AUTO) 10 % (2-9); NEUTROPHILS # (AUTO) 3.88 x10^3/uL (1.8-6.8); NEUTROPHILS % (AUTO) 60 % (42-75)
[2018-06-06] MEDS ORDERED: OMEPRAZOLE 20 MG CAPSULE.DR PO SCH (09:00)
[2018-06-06] MEDS ORDERED: FLUTICASONE NASAL SPRAY 16GM NAS SCH (09:00)
[2018-06-06] MEDS ORDERED: ASPIRIN 81 MG TABLET CHEW PO SCH (09:00)
== END 2018-06-06 12:36 | disposition home or self-care (01) | DRG 310 ==
LOC: ED 17:15 → EDIP 18:29 → 5SO 20:41
PROVIDERS: ADMIT Internal Medicine; ATTEND Internal Medicine
DX: I48.92 Unspecified atrial flutter (principal); E78.5 Hyperlipidemia, unspecified; I25.10 Atherosclerotic heart disease of native coronary artery without angina pectoris; K21.9 Gastro-esophageal reflux disease without esophagitis; R73.03 Prediabetes; Z79.01 Long term (current) use of anticoagulants; Z83.3 Family history of diabetes mellitus; Z86.79 Personal history of other diseases of the circulatory system; Z95.2 Presence of prosthetic heart valve
CPT/HCPCS: 36415; 71045; 80048; 82040; 82962; 84439; 84443; 84484; 85025; 85610; 85730; 93005; 99285; G0378